=== PATIENT | male | born 1950 | race Caucasian/White ===

== ENCOUNTER 2016-10-11 13:58 | Inpatient (IN) | payer MEDICARE, OTHER ==
[~2016-10-11] VITALS: Ht 175.3 cm; Wt 108.5 kg
--- NOTE | ~2016-10-11 | DS ---
PATIENT'S NAME: JULIO DILLARD [facility] AGE: 66 Y [address] ROOM: [address] [place], [place] [address] LOCATION: GPCU ADMIT DATE: 10/11/2016 Discharge Summary DISCHARGE DATE: 10/13/2016 FAMILY PHYSICIAN: Marleny Vang APRN ATTENDING PHYSICIAN: Stewart Kapoor PRINCIPAL DIAGNOSIS: 1. Acute blood loss anemia. 2. Supratherapeutic INR. 3. History of recurrent deep venous thrombosis. 4. Type 2 diabetes. 5. Hypertension. BRIEF HOSPITAL COURSE: This is a 66-year-old male who presented with generalized fatigue and was found have a hemoglobin of 5. The patient had been on Coumadin long-term for recurrent DVT. The patient also reported noticing several episodes of spitting up blood for several days in the week leading to his presentation. The patient was promptly evaluated and given 3 units of PRBCs, then had an EGD done with GI which did not show a GI source of bleed. The patient of note had reported having a loose stool and had been losing significant amount of blood from that and that source does appear to be the cause for the blood loss. Of note, this is the patient's 3rd admission with similar complications related to being on anticoagulation that required him to be in the hospital. At this point, I have discussed with the patient in detail the need to be on anticoagulation going forward and also noting that his last DVT was about 9 years ago, but he had had 3 hospitalizations in the past couple of years from bleeding. Upon discussion with the patient, the patient is to continue to hold taking Coumadin and discuss options going forward with his primary care physician. The patient's hemoglobin today is 8. I will discharge him on iron supplements for him to continue taking and will be on a baby aspirin upon discharge until he follows up with primary care physician within 1 week. PHYSICAL EXAMINATION: GENERAL: The patient is alert, awake, and oriented x3, in no acute distress. CHEST: Clear to auscultation bilaterally. HEART: S1, S2. Regular rate and rhythm. ABDOMEN: Soft, nontender, nondistended. EXTREMITIES: Without edema. NEURO: Grossly nonfocal. MEDICATIONS: Per MAR and holding Coumadin until re-evaluated by PCP. DISPOSITION: Home. Follow up with PCP within 1 week. PATIENT'S NAME: JULIO DILLARD [facility] AGE: 66 Y [address] ROOM: [place] [address] [facility] ADMIT DATE: 10/11/2016 Discharge Summary DISCHARGE DATE: 10/13/2016 FAMILY PHYSICIAN: Marleny Vang APRN ATTENDING PHYSICIAN: Stewart Kapoor Less than 30 minutes were spent in discharge planning. MD ODALIS DAVIS/rani /[id number] d: 10/14/16 0308 t: 10/29/16 1200, DISCHARGE SUMMARY
--- NOTE | ~2016-10-11 | CON ---
PATIENT'S NAME: JULIO JEAN [facility] AGE: 66 Y [address] ROOM: [address] [place] [address] LOCATION: GPCU ADMIT DATE: 10/11/2016 Consultation DISCHARGE DATE: FAMILY PHYSICIAN: DEYANIRA BELLO ATTENDING PHYSICIAN: JIMY HOLT REFERRING PHYSICIAN: BOUBACAR BEAR MD REASON FOR CONSULT: Low hemoglobin, question of GI bleed. HISTORY OF PRESENT ILLNESS: Mr. Jean is a 66-year-old male who was transferred from [place] in view of anemia and "black stools." The patient is on chronic Coumadin therapy in view of his history of deep venous thrombosis and states that he was bleeding from his mouth after scraping something starting last Saturday and "bled quite a bit the whole weekend." He states he put some pressure gauze in his mouth to help, however, his INR was "very high." He continued to bleed over the weekend and did not seek any attention, but went to his clinic today whereby he was found to have a hemoglobin of 5.6, INR was 1.8, and was transferred here for further management. He denies having any heartburn, history of ulcers, and his stools are "becoming close to normal color." He denies ingestion of nonsteroidals. He does take aspirin preventive and is also on warfarin therapy with high INR initially. He has not had any further bleeding since after admission and his vital signs have been rock stable. Review of the records reveals a previous history of GI bleed back in April of 2014 when he underwent upper as well as lower GI endoscopy which was all normal except for diverticulosis and a small polyp. He had another upper endoscopy in September of 2015, which was also negative. He has had a CT scan of the abdomen in September of 2015, which revealed fatty liver and sigmoid diverticulosis. PAST MEDICAL HISTORY: 1. Hypertension. 2. Type 2 diabetes mellitus. 3. Deep venous thrombosis, apparently requiring chronic Coumadin therapy, however, question the need at present. PAST SURGICAL HISTORY: None except for upper and lower GI endoscopy as noted. MEDICATIONS: At home included, 1. Tylenol. PATIENT'S NAME: JULIO JEAN [facility] AGE: 66 Y [address] ROOM: [address] [address] LOCATION: GPCU ADMIT DATE: 10/11/2016 Consultation DISCHARGE DATE: FAMILY PHYSICIAN: DEYANIRA BELLO ATTENDING PHYSICIAN: JIMY HOLT 2. Aspirin. 3. Feosol. 4. Hydrochlorothiazide. 5. Lisinopril. 6. Metformin. 7. Multivitamin. 8. Protonix. 9. Warfarin. 10. Pravachol. ALLERGIES: NONE KNOWN. SOCIAL HISTORY: Previous [id number] smoking, quit in 1996. Denies alcohol use. FAMILY HISTORY: Diabetes and heart disease. REVIEW OF SYSTEMS: The 10-point review of systems is done and is negative. PHYSICAL EXAMINATION: GENERAL: Well-developed, well-nourished, healthy-looking man, in no acute distress. VITAL SIGNS: Stable as noted on the monitor and nursing sheets. HEENT: Atraumatic, normocephalic. Pupils round and reactive. Nonicteric sclera. NECK: Supple. No lymphadenopathy. No thyromegaly. CHEST: Clear to auscultation. HEART: S1, S2 normal. ABDOMEN: Soft and obese without palpable masses or tenderness. EXTREMITIES: Pulses are well palpable. No pedal edema. NEUROLOGIC: Awake, alert, and appropriate, without any focal deficits. LABORATORY DATA: Labs as noted above. Previous endoscopy findings as noted above. ASSESSMENT AND PLAN: A 66-year-old male admitted with anemia and bleeding from his oral cavity with high INR last week, now getting blood transfusion and the stools returning back to "normal color." He has had previous endoscopy evaluations, which have been negative, and therefore unlikely to have a significant lesion at present PATIENT'S NAME: JULIO JEAN [facility] AGE: 66 Y [address] ROOM: [address] [address] LOCATION: GPCU ADMIT DATE: 10/11/2016 Consultation DISCHARGE DATE: FAMILY PHYSICIAN: DEYANIRA BELLO ATTENDING PHYSICIAN: JIMY HOLT with no other risk factors and no use of nonsteroidals. We will proceed with upper endoscopy in view of his black stools, however, more than likely he bled from his oral cavity. I question the need for chronic Coumadin therapy in this patient and may need to be reviewed for future purposes. Thank you for this interesting consult. BOUBACAR BEAR MD AM/rani /[id number] d: 10/11/16 2326 t: 10/15/16 1522, CONSULTATION REPORT
--- NOTE | ~2016-10-11 | ER ---
PATIENT'S NAME: JULIO DILLARD [facility] AGE: 66 Y [address] ROOM: [place] [address] LOCATION: GPCU ADMIT DATE: 10/11/2016 ER/Outpatient Report DISCHARGE DATE: FAMILY PHYSICIAN: DEYANIRA BELLO ATTENDING PHYSICIAN: JIMY HOLT CHIEF COMPLAINT: Rectal bleeding. HISTORY OF PRESENT ILLNESS: The patient presents to the emergency department by private vehicle after being evaluated in [place] earlier today. He was told to come here because they could not get a hold of his GI physician. The patient notes that Saturday, he developed some bleeding around the gums and in the mouth which kind of bled off and on throughout the weekend, but he was able to continue doing his daily work without significant intervention. He supposedly had been doing fine, but just notes that his energy progressively got worse and worse. He states that he has been having dark tarry stools for the last several days. He does state he has seen Dr. Robles for colonoscopy and never was told he had anything such as a polyp or similar. His hemoglobin was 5.7 at their clinic and they sent him here. PAST MEDICAL HISTORY: Notable for diabetes, hypertension, high cholesterol, and DVT based on med list. He also has GERD and takes Protonix routinely. ALLERGIES: NO KNOWN MEDICAL ALLERGIES. SOCIAL HISTORY: Please see chart for past social history. REVIEW OF SYSTEMS: All systems were reviewed and negative except as noted in the HPI. PHYSICAL EXAMINATION: VITAL SIGNS: Blood pressure 145/65, pulse is 96, respiratory rate is 20, temperature 97.4, SpO2 is 94% on room air. Pain 0/10. GENERAL: Age-appropriate male, in no obvious pain or distress. Recumbent in the bed. NEUROLOGIC: Awake and alert. GCS 15. No focal deficits. No asymmetry. No detectable weakness. HEENT: Normocephalic, atraumatic. Eyes are PERRL. Conjunctivae are clear and pale. PATIENT'S NAME: JULIO DILLARD [facility] AGE: 66 Y [address] ROOM: [place] [address] LOCATION: GPCU ADMIT DATE: 10/11/2016 ER/Outpatient Report DISCHARGE DATE: FAMILY PHYSICIAN: DEYANIRA BELLO ATTENDING PHYSICIAN: JIMY HOLT NECK: Supple. Trachea is midline. Mouth is moist. HEART: Normal rate and rhythm with no murmurs. LUNGS: Clear to auscultation bilateral. No rhonchi, wheezes, or rales. ABDOMEN: Soft, nontender, and nondistended. No rebound or guarding. BACK: Nontender to palpation throughout. EXTREMITIES: Warm and well perfused. No evidence of DVT. SKIN: Warm, dry, and intact. LABORATORY DATA: Labs are notable for hemoglobin of 5.6. Labs prior to arrival are reviewed. Hemoglobin 5.5. Hemoccult-positive stool. INR was 1.8 this morning. CMS is unremarkable. IMPRESSION: 1. Acute gastrointestinal bleed with melena. 2. Anemia, acute blood loss requiring transfusion. EMERGENCY DEPARTMENT COURSE: The patient seen and evaluated as above. Type and screen for 2 units of blood. Protonix initiated for elevated BUN. He remained otherwise asymptomatic. Discussed case with Dr. Pandey, and we will admit to the hospitalist for further evaluation and treatment under the care of Dr. Holt for this acute GI bleed. MD NANETTE SUMNER/rani /[id number] d: 10/11/162222 t: 10/16/162202, OUTPATIENT REPORT
--- NOTE | ~2016-10-11 | HP ---
PATIENT'S NAME: JULIO DILLARD [facility] AGE: 66 Y [address] ROOM: [id number] [place], [place] [address] LOCATION: GPCU ADMIT DATE: 10/11/2016 History & Physical DISCHARGE DATE: FAMILY PHYSICIAN: DEYANIRA BELLO ATTENDING PHYSICIAN: JIMY HOLT DATE OF SERVICE: CHIEF COMPLAINT: Weakness and lethargy. HISTORY OF PRESENT ILLNESS: This is a 66-year-old male, with past medical history of DVTs, on Coumadin, who came in after the patient was transferred from [place] to the emergency room for evaluation for his acute symptomatic anemia. History was obtained from the patient, he reported that for the past 3 days that he has been feeling weak and tired with lack of energy and he also developed dyspnea on exertion, worse than from his baseline. He reported 3 days prior to the onset of his symptoms that he had a mouth bleed for a total of 3 days, the worst was on Saturday when he had to apply some pressure support into his mouth to stop the bleeding, and reported that since then that his symptoms of weakness and shortness of breath began. He also notes lightheadedness and dizziness as well. He denies chest pain at rest or chest pain on exertion. Denies abdominal pain. He reported also that for the first couple of days after the onset of his symptoms that he had passage of black stool and last episode was 2:00 p.m. yesterday when the color was dark, not as black as the first couple of days. He denies any fall at home. Denies urinary symptoms. Denies blood in his urine. Denies headache, neck pain, or back pain. The patient reported that on Saturday, which is 4 days ago, he went in to [place] for his INR check and was told that his INR was high, so since Saturday he has been off his Coumadin and today he presented back to [place] for a repeat INR check and also because he was not feeling great and it was from there that he was transferred there. REVIEW OF SYSTEMS: The 13 elements of review of systems were asked and as documented in the HPI. The others are negative. PAST MEDICAL HISTORY: Includes DVT, diabetes type 2, essential hypertension, chronic anemia, and diverticulosis. PAST SURGICAL HISTORY: Includes polypectomy. PATIENT'S NAME: JULIO DILLARD [facility] AGE: 66 Y [address] ROOM: [address] [place], [place] [address] [facility] ADMIT DATE: 10/11/2016 History & Physical DISCHARGE DATE: FAMILY PHYSICIAN: DEYANIRA BELLO ATTENDING PHYSICIAN: JIMY HOLT FAMILY HISTORY: Mother had TIA and at age of 91, father had heart disease and at age of 81. SOCIAL HISTORY: Prior history of smoking in the past, [id number]. Denies use of alcohol. PHYSICAL EXAMINATION: VITAL SIGNS: In PCU, pulse 90, temperature 98.1, oxygen saturation 99% on room air, respiratory rate 20, and blood pressure 123/58. GENERAL: A pleasant male who is alert, awake, oriented x3, not in any form of respiratory distress or painful distress. He is comfortable. NEUROLOGIC: Cranial nerves 2 through 12 are intact bilaterally. Sensory is intact bilaterally. Power is 5/5 in all the extremities. HEENT: Normocephalic, atraumatic. Pupils equal and reactive to light bilaterally. Pharynx, no source of bleeding or old bleeding visible. Mucosa is moist. Ears: No obvious ear discharge or drainage. NECK: Supple. No area of tenderness. No lymphadenopathy. CARDIOVASCULAR SYSTEM: Normal S1, S2. Regular rate and rhythm. CHEST: Clear to auscultation bilaterally. ABDOMEN: Soft, nondistended. No area of tenderness. No palpable organomegaly. Positive bowel sounds. EXTREMITIES: There is no joint swelling or erythema or tenderness. No peripheral pitting or pedal edema. SKIN: No rash or skin breakdown. No petechial rash. LABORATORY DATA: WBC on admission 11.7, H and H was 5.6/19.1, and platelets 344. Sodium 139, potassium 3.7, chloride 103, CO2 27, calcium 8.1, creatinine 0.9, and BUN 20. AST 17, ALT 23, alkaline phosphatase 75, and total bilirubin 0.6. Albumin 3.5. INR 1.29. Microbiology not indicated. ASSESSMENT AND PLAN: This is a 66-year-old male who comes in with symptomatic anemia. 1. Acute on chronic anemia secondary to possibly bleeding from the mouth which occurred for 3 days a week ago, present on admission. It could be from probably a gastrointestinal bleed. The patient is going to get 2 units of blood. I will monitor his H and H every 8 hours for now until is stable. GI has been consulted in the ER, probably they are going to scope the patient. 2. Diabetes type 2, controlled, stable. We will continue the patient on his medication. 3. History of deep venous thrombosis, on long-term anticoagulation. The patient right now is subtherapeutic. We will hold off his Coumadin until after the colonoscopy is done and if it is negative, we will restart him PATIENT'S NAME: JULIO DILLARD [facility] AGE: 66 Y [address] ROOM: [place] [address] LOCATION: [facility] ADMIT DATE: 10/11/2016 History & Physical DISCHARGE DATE: FAMILY PHYSICIAN: DEYANIRA BELLO ATTENDING PHYSICIAN: JIMY HOLT on his Coumadin. 4. Essential hypertension, stable. We will continue the patient on his medication. The line of management was explained to the patient who did not have any questions at this time. MD TERI HERNÁNDEZ/rani /[id number] D: 223 T: 617 HISTORY & PHYSICAL
[~2016-10-11 13:58] MED LIST: COUMADIN **IA10 MG PO; GLUCOPHAGE500 MG PO; HYDRODIURIL12.5 MG PO; LOVENOX 10100 MG/1 M SUB-Q; PRAVACHOL40 MG PO; PROTONIX40 M1 PO; TYLENOL325 MG PO; ZESTRIL40 MG PO
[2016-10-11 14:40] LABS: BASOPHIL % 0.3 %; EOSINOPHIL # 0.1 K/uL (0.0-0.5); EOSINOPHIL % 0.6 %; HEMATOCRIT 19.1 % (37.0-53.0); IMMATURE GRANULOCYTE # 0.3 K/uL (0.0-0.3); IMMATURE GRANULOCYTE % 2.1 %; LYMPHOCYTE # 1.2 K/uL (0.8-4.0); LYMPHOCYTE % 10.5 %; MCHC 29.3 gm/dL (32.0-36.5); MONOCYTE # 1.2 K/uL (0.0-1.0); MPV 11.1 fl (9.4-12.4); NEUTROPHIL # (ANC) 8.9 K/uL (1.4-9.0); NEUTROPHIL % 76.5 %; NRBC % 0.5 /100WBC (0-0.00); PLATELET COUNT 344 K/uL (150-450); RDW-CV 20.5 % (11.9-14.6); WBC 11.7 K/uL (4.0-11.0)
[2016-10-11 14:41] LABS: MCH 24.3 pg (27.0-34.0)
[2016-10-11 14:42] LABS: HEMOGLOBIN 5.6 g/dL (11.0-16.0)
[2016-10-11 14:57] LABS: ALBUMIN 3.5 gm/dL (3.5-5.0); ALK PHOS 75 IU/L (33-138); ALT 23 IU/L (12-78); ANION GAP 12.7 (10.0-19.0); AST 17 IU/L (10-40); BLOOD UREA NITROGEN 20 mg/dL (6-24); CALCIUM 8.1 mg/dL (8.5-10.5); CHLORIDE 103 mMol/L (96-110); CO2 27 mMol/L (22-32); CREATININE 0.9 mg/dL (0.6-1.3); ESTIMATED GFR (MDRD EQUATION) > 60; POTASSIUM 3.7 mMol/L (3.7-5.1); SODIUM 139 mMol/L (135-145); TOTAL BILIRUBIN 0.6 mg/dL (0.0-1.5); TOTAL PROTEIN 6.1 g/dL (6.0-8.4)
[2016-10-11 15:15] LABS: INR - (THERAPEUTIC) 1.29 (0.92-1.07); PROTIME 13.6 SECONDS (9.8-11.4); PTT 31 SECONDS (25-32)
[2016-10-11] MEDS ORDERED: COUMADIN **IA7.5 MG PO (15:26)
[2016-10-11] MEDS ORDERED: FEOSOL325 MG PO (15:27)
[2016-10-11] MEDS ORDERED: THERAGRAN-M1 TAB PO (15:27)
[2016-10-11] MEDS ORDERED: ASPIRIN LO-DOSE81 MG PO (15:27)
--- NOTE | 2016-10-11 17:01 | NUR ---
Pt is 66 y/o male admit for GI bleed/anemia for hospitalist. GI to consult. Pt alert and oriented x3. Resides at home by himself. No allergies. Hx GI bleed,hematuria,DVT's in legs,anticoagulant therapy, htn,hypercholest,DM, gerd,bloody stools,anemia,arthritis in knees. Pt states he's been off Coumadin since Saturday when his dark stools started. Since then he's felt increased weakness and SOB with activity as well as decreased appetite. Went to see his provider at the clinic in [place] who sent him here. He has 2nd unit of PRBC's infusing.
--- NOTE | 2016-10-11 17:26 | NUR ---
Significant Event: pt from [place] went to [facility] and they sent him here. Hgb 5.6. INR 1.8. 2 units prbc given this afternoon. Dr Ramirez here to see pt, and dr Kapoor. YASMINE cain. Protonix given po. Coumadin held since saturday. Pt standby asst. Pt brother went home, his number on board in room. No c/o pain. Pt alert/oriented and pleasant Follow up:
[2016-10-11 21:25] LABS: HEMOGLOBIN 6.1 g/dL (11.0-16.0)
--- NOTE | 2016-10-12 04:57 | NUR ---
Significant Event: A/O x3. Afebrile. Denies pain. VSS on RA. SBP 120s. HRs 70s. Active bowel sounds, no nausea. After 2nd transfusion, Hgb was 6.1. Another 2 units PRBC's ordered. Currently administering the last unit. Full CBC will be checked @ 0600. Pt has been comfortable/asymptomatic the entire shift. NPO since midnight for EGD. Permits have been signed. Follow up: Continue to monitor blood/volume status.
[2016-10-12 06:52] LABS: BASOPHIL # 0.1 K/uL (0.0-0.2); BASOPHIL % 0.5 %; EOSINOPHIL # 0.1 K/uL (0.0-0.5); EOSINOPHIL % 1.3 %; IMMATURE GRANULOCYTE # 0.1 K/uL (0.0-0.3); IMMATURE GRANULOCYTE % 1.4 %; LYMPHOCYTE # 1.1 K/uL (0.8-4.0); LYMPHOCYTE % 11.7 %; MCV 83.2 fl (83.0-98.0); MONOCYTE % 10.6 %; MPV 10.7 fl (9.4-12.4); NEUTROPHIL # (ANC) 7.1 K/uL (1.4-9.0); NEUTROPHIL % 74.5 %; NRBC % 0.7 /100WBC (0-0.00); WBC 9.6 K/uL (4.0-11.0)
[2016-10-12 06:53] LABS: HEMATOCRIT 24.3 % (37.0-53.0); HEMOGLOBIN 7.6 g/dL (11.0-16.0); MCHC 31.3 gm/dL (32.0-36.5); RBC 2.92 M/uL (3.50-5.50)
[2016-10-12 06:54] LABS: PLATELET COUNT 265 K/uL (150-450); RDW-CV 17.6 % (11.9-14.6)
[2016-10-12 06:59] LABS: INR - (THERAPEUTIC) 1.23 (0.92-1.07); PROTIME 12.9 SECONDS (9.8-11.4)
--- NOTE | 2016-10-12 11:44 | NUR ---
1119 Came by to review Emilio's chart and also talk with him about his dismissal plans. His chart and he were not in his room when I stopped. I plan on coming back by later to see if he is available and talk with him about his discharge plans at that time. I did see on the huddle board that nursing anticipates that he will be able to go home upon discharge. CM to continue to follow and assist. Plan for home.
--- NOTE | 2016-10-12 11:45 | NUR ---
reviewed student charting and on the floor from [id number] [place] [id number]-ccc
[2016-10-12 13:57] LABS: HEMATOCRIT 25.2 % (37.0-53.0)
[2016-10-12 13:58] LABS: HEMOGLOBIN 7.9 g/dL (11.0-16.0)
--- NOTE | 2016-10-12 15:44 | NUR ---
Significant Event: A/O X 3. DENIES PAIN. EGD: NORMAL EXCEPT SM. HIATAL HERNIA. BLEED MOST LIKELY FROM ORAL CAVIETY WITH BAD TOOTH BLEED, ALONG WITH INR BEING ELEVATED. OFF COUMADIN FOR NOW. IV SL RT. FA. TELE UNIT ON, SO PATIENT CAN BE MOBILE. DENIES DIZZYNESS OR SHORTNESS OF BREATH. AFEBRILE. HR 70-90'S. SBP 120-140'S. Follow up: CBC AND INR IN A.M. THEN POSSIBLE DISM.
[2016-10-13 04:15] LABS: BASOPHIL # 0.1 K/uL (0.0-0.2); BASOPHIL % 0.6 %; EOSINOPHIL # 0.1 K/uL (0.0-0.5); EOSINOPHIL % 1.2 %; HEMOGLOBIN 8.1 g/dL (11.0-16.0); IMMATURE GRANULOCYTE # 0.1 K/uL (0.0-0.3); IMMATURE GRANULOCYTE % 1.1 %; LYMPHOCYTE # 1.3 K/uL (0.8-4.0); LYMPHOCYTE % 13.6 %; MCHC 31.2 gm/dL (32.0-36.5); MCV 83.3 fl (83.0-98.0); MONOCYTE # 0.9 K/uL (0.0-1.0); MONOCYTE % 9.8 %; MPV 10.2 fl (9.4-12.4); NEUTROPHIL % 73.7 %; NRBC % 0.6 /100WBC (0-0.00); PLATELET COUNT 291 K/uL (150-450); RBC 3.12 M/uL (3.50-5.50); WBC 9.4 K/uL (4.0-11.0)
[2016-10-13 04:24] LABS: INR - (THERAPEUTIC) 1.07 (0.92-1.07); PROTIME 11.2 SECONDS (9.8-11.4)
--- NOTE | 2016-10-13 04:50 | NUR ---
Significant Event: A/Ox3. Afebrile. VSS on RA. SBP 100-120s. HRs 70-80s. Denies pain. Hgb 8.1 this am. INR 1.07. Up adlib. Cooperative with cares. Follow up: Possible discharge today.
--- NOTE | 2016-10-13 14:42 | NUR ---
d- ord pt dc
== END 2016-10-13 14:00 | disposition disaster alternative care site (69) | DRG 812 ==
LOC: GMED 13:58 → GPCU 15:04
PROVIDERS: Emergency Medicine; Internal Medicine; Internal Medicine Gastroenterology; ADMIT Hospitalist
PROC: 30233N1 Transfusion of Nonautologous Red Blood Cells into Peripheral Vein, Percutaneous Approach (ICD-10-PCS; principal; 2016-10-11)
PROC: 0DJ08ZZ Inspection of Upper Intestinal Tract, Via Natural or Artificial Opening Endoscopic (ICD-10-PCS; 2016-10-12)
DX: D62 Acute posthemorrhagic anemia (principal); I10 Essential (primary) hypertension; K92.2 Gastrointestinal hemorrhage, unspecified; D64.9 Anemia, unspecified; E11.9 Type 2 diabetes mellitus without complications; Z79.01 Long term (current) use of anticoagulants; Z86.718 Personal history of other venous thrombosis and embolism; Z87.891 Personal history of nicotine dependence
CPT/HCPCS: C9113; J7030; J7050; P9016